=== PATIENT | female | born 1990 | race African-American/Black ===

== ENCOUNTER 2017-08-01 17:07 | Emergency (ER) | payer MEDICAID, OTHER | END 2017-08-01 20:20 | disposition home or self-care (01) | LOC: FTE 17:07 | DX: S62.306A Unspecified fracture of fifth metacarpal bone, right hand, initial encounter for closed fracture (principal); W18.2XXA Fall in (into) shower or empty bathtub, initial encounter; Y92.9 Unspecified place or not applicable; Z87.891 Personal history of nicotine dependence | CPT/HCPCS: 29130; 73130-RT; 99283-25 ==